=== PATIENT | female | born 1965 | race Caucasian/White ===

== ENCOUNTER 2017-08-07 19:51 | Emergency (ER) | payer OTHER ==
[~2017-08-07] VITALS: Ht 165.1 cm; Wt 71.3 kg
[2017-08-07 20:04] VITALS: BP 153/80
--- NOTE | 2017-08-07 20:14 | NUR ---
PT RETURNED TO LOBBY
--- NOTE | 2017-08-07 23:24 | NUR ---
PATIENT LEFT WITHOUT BEING SEEN BY DR. PATEL. NO FURTHER CARE PROVIDED FOR PATIENT.
== END 2017-08-07 23:24 | disposition left against medical advice (07) ==
LOC: MED 19:51
DX: R11.10 Vomiting, unspecified (principal); Z53.21 Procedure and treatment not carried out due to patient leaving prior to being seen by health care provider